=== PATIENT | female | born 1960 | race Caucasian/White ===

== ENCOUNTER 2018-12-26 14:47 | Emergency (ER) | payer BC ==
[2018-12-26] MEDS ORDERED: Albuterol/Ipratropium NEB.SOL* Albuterol 2.5 MG/Ipratropium 0.5 MG 3 ML INH ONE (18:08)
[2018-12-26 18:28] LABS: ABS Basophils 0 10^3/ul (0-0.2); ABS Eosinophils 0.4 10^3/ul (0-0.6); ABS Neutrophils 8.3 10^3/ul (1.5-7.7); ABS Nucleated RBC 0 10^3/ul; Eosinophil % 3.2 %; Hematocrit 44 % (33-41); Hemoglobin 14.7 g/dL (12.0-16.0); Mean Corpuscular HGB Conc 34 g/dL (31-36); Mean Corpuscular Hemoglobin 28 pg (27-31); Mean Corpuscular Volume 83 fL (80-97); Mean Platelet Volume 7.9 fL (7.4-10.4); Nucleated Red Blood Cells % 0; Platelet Count 272 10^3/uL (150-450); Red Blood Count 5.27 10^6 /uL (3.70-4.87); Red Cell Distribution Width 13 % (10.5-15); White Blood Count 11.6 10^3/uL (3.5-10.8)
[2018-12-26 19:01] LABS: ALT 42 U/L (7-52); AST 34 U/L (13-39); Albumin 4.1 g/dL (3.2-5.2); Albumin/Globulin Ratio 1.1 (1-3); Alkaline Phosphatase 80 U/L (34-104); Anion Gap 9 mmol/L (2-11); BUN/Creatinine Ratio 15.6 (8-20); Blood Urea Nitrogen 10 mg/dL (6-24); C Reactive Protein 71.65 mg/L (<8.01); CO2 Carbon Dioxide 27 mmol/L (22-32); Calcium 8.7 mg/dL (8.6-10.3); Chloride 100 mmol/L (101-111); EGFR African American 114.5 (>60); EGFR Non-African American 94.7 (>60); Globulin 3.7 g/dL (2-4); Glucose 95 mg/dL (70-100); Potassium 3.8 mmol/L (3.5-5.0); Sodium 136 mmol/L (135-145); Total Protein 7.8 g/dL (6.4-8.9)
[2018-12-26] MEDS ORDERED: Iodixanol* (CONTRAST) 320 MG/ML 100 ML SDV IV ONE (19:17)
[2018-12-26 19:28] LABS: Troponin I 0.02 ng/mL (<0.04)
--- NOTE | 2018-12-26 19:38 | ED ---
Respiratory - HPI Summary HPI Summary: 58-year-old female presents with cough for the past couple days. She admits to occasional shortness of breath. No chest pain. She states cough is productive. She denies any fevers. No nausea or vomiting. No bowel pain. She was seen in [facility] and told may have spot in lungs. She has history of thyroid and uterine cancer that is in remission. She was never smoker. has fam hx of blood clots. no change in weight. no pain or swelling in her calf muscles. no hx of asthma or copd. - History of Current Complaint Chief Complaint: EDUpperRespComplaint Stated Complaint: HAS SPOT ON LUNG AND WANTS CAT SCAN PER PT Time Seen by Provider: 12/26/18 17:56 Pain Intensity: 0 - Allergy/Home Medications Allergies/Adverse Reactions: Allergies Allergy/AdvReac Type Severity Reaction Status Date / Time Penicillins Allergy Hives Verified 12/26/18 15:06 Sulfa (Sulfonamide Allergy Rash Verified 12/26/18 15:06 Antibiotics) ZUCCHINI Allergy Hives Uncoded 03/28/18 13:47 Home Medications: Home Medications Levothyroxine TAB* [Synthroid TAB*] 125 mcg PO DAILY 12/26/18 [History Confirmed 12/26/18] Metformin HCl 500 mg PO BID 12/26/18 [History Confirmed 12/26/18] Propranolol TAB* [Inderal TAB*] 20 mg PO BID 12/26/18 [History Confirmed ] PMH/Surg Hx/FS Hx/Imm Hx Endocrine/Hematology History: Reports: Hx Diabetes Cardiovascular History: Denies: Hx Hypertension, Hx Pacemaker/ICD History: Denies: Hx Renal Disease Sensory History: Denies: Hx Hearing Aid Psychiatric History: Denies: Hx Panic Disorder - Cancer History Cancer Type, Location and Year: THYROID Hx Chemotherapy: No Hx Radiation Therapy: No - Surgical History Surgery Procedure, Year, and Place: THYROID REMOVED Infectious Disease History: No Infectious Disease History: Denies: Traveled Outside the [place] in Last 30 Days Review of Systems Negative: Fever Negative: Chest Pain Positive: Shortness Of Breath, Cough Negative: Abdominal Pain All Other Systems Reviewed And Are Negative: Yes Physical Exam Triage Information Reviewed: Yes Vital Signs On Initial Exam: Initial Vitals Temp Pulse Resp BP Pulse Ox 97.8 F 67 16 146/64 94 12/26/18 14:59 12/26/18 14:59 12/26/18 14:59 12/26/18 14:59 12/26/18 14:59 Vital Signs Reviewed: Yes Appearance: Positive: Well-Appearing Skin: Positive: Warm, Dry Head/Face: Positive: Normal Head/Face Inspection Eyes: Positive: Normal, EOMI, BASHIR, Conjunctiva Clear ENT: Positive: Normal ENT inspection, Pharynx normal, TMs normal Respiratory/Lung Sounds: Positive: Clear to Auscultation, Breath Sounds Present Cardiovascular: Positive: Normal, RRR Abdomen Description: Positive: Nontender, Soft Bowel Sounds: Positive: Present Musculoskeletal: Positive: Normal Neurological: Positive: Normal Psychiatric: Positive: Normal Diagnostics - Vital Signs Vital Signs Temp Pulse Resp BP Pulse Ox 12/26/18 18:52 66 143/86 93 12/26/18 18:22 71 138/81 97 12/26/18 18:00 66 92 12/26/18 17:53 75 96 12/26/18 17:52 71 162/105 95 12/26/18 16:50 99.3 F 69 16 144/69 93 12/26/18 14:59 97.8 F 67 16 146/64 94 - Laboratory Lab Results: Lab Results 12/26/18 12/26/18 12/26/18 Range/Units 18:19 18:19 18:19 WBC 11.6 H (3.5-10.8) 10^3/uL RBC 5.27 H (3.70-4.87) 10^6 /uL Hgb 14.7 (12.0-16.0) g/dL Hct 44 H (33-41) % MCV 83 (80-97) fL MCH 28 (27-31) pg MCHC 34 (31-36) g/dL RDW 13 (10.5-15) % Plt Count 272 (150-450) 10^3/uL MPV 7.9 (7.4-10.4) fL Neut % (Auto) 71.1 % Lymph % (Auto) 17.0 % Tompkins % (Auto) 8.4 % Eos % (Auto) 3.2 % Baso % (Auto) 0.3 % Absolute Neuts (auto) 8.3 H (1.5-7.7) 10^3/ul Absolute Lymphs (auto) 2.0 (1.0-4.8) 10^3/ul Absolute Monos (auto) 1.0 H (0-0.8) 10^3/ul Absolute Eos (auto) 0.4 (0-0.6) 10^3/ul Absolute Basos (auto) 0 (0-0.2) 10^3/ul Absolute Nucleated RBC 0 10^3/ul Nucleated RBC % 0 D-Dimer, Quantitative 253 H (Less Than 230) ng/mL Sodium 136 (135-145) mmol/L Potassium 3.8 (3.5-5.0) mmol/L Chloride 100 L (101-111) mmol/L Carbon Dioxide 27 (22-32) mmol/L Anion Gap 9 (2-11) mmol/L BUN 10 (6-24) mg/dL Creatinine 0.64 (0.51-0.95) mg/dL Est GFR ( Amer) 114.5 (>60) Est GFR (Non-Af Amer) 94.7 (>60) BUN/Creatinine Ratio 15.6 (8-20) Glucose 95 (70-100) mg/dL Lactic Acid (0.5-2.0) mmol/L Calcium 8.7 (8.6-10.3) mg/dL Total Bilirubin 0.50 (0.2-1.0) mg/dL AST 34 (13-39) U/L ALT 42 (7-52) U/L Alkaline Phosphatase 80 (34-104) U/L Troponin I 0.02 (<0.04) ng/mL C-Reactive Protein 71.65 H (<8.01) mg/L B-Natriuretic Peptide (<=100) pg/mL Total Protein 7.8 (6.4-8.9) g/dL Albumin 4.1 (3.2-5.2) g/dL Globulin 3.7 (2-4) g/dL Albumin/Globulin Ratio 1.1 (1-3) 12/26/18 12/26/18 Range/Units 18:19 18:19 WBC (3.5-10.8) 10^3/uL RBC (3.70-4.87) 10^6 /uL Hgb (12.0-16.0) g/dL Hct (33-41) % MCV (80-97) fL MCH (27-31) pg MCHC (31-36) g/dL RDW (10.5-15) % Plt Count (150-450) 10^3/uL MPV (7.4-10.4) fL Neut % (Auto) % Lymph % (Auto) % Tompkins % (Auto) % Eos % (Auto) % Baso % (Auto) % Absolute Neuts (auto) (1.5-7.7) 10^3/ul Absolute Lymphs (auto) (1.0-4.8) 10^3/ul Absolute Monos (auto) (0-0.8) 10^3/ul Absolute Eos (auto) (0-0.6) 10^3/ul Absolute Basos (auto) (0-0.2) 10^3/ul Absolute Nucleated RBC 10^3/ul Nucleated RBC % D-Dimer, Quantitative (Less Than 230) ng/mL Sodium (135-145) mmol/L Potassium (3.5-5.0) mmol/L Chloride (101-111) mmol/L Carbon Dioxide (22-32) mmol/L Anion Gap (2-11) mmol/L BUN (6-24) mg/dL Creatinine (0.51-0.95) mg/dL Est GFR ( Amer) (>60) Est GFR (Non-Af Amer) (>60) BUN/Creatinine Ratio (8-20) Glucose (70-100) mg/dL Lactic Acid 1.0 (0.5-2.0) mmol/L Calcium (8.6-10.3) mg/dL Total Bilirubin (0.2-1.0) mg/dL AST (13-39) U/L ALT (7-52) U/L Alkaline Phosphatase (34-104) U/L Troponin I (<0.04) ng/mL C-Reactive Protein (<8.01) mg/L B-Natriuretic Peptide 27 (<=100) pg/mL Total Protein (6.4-8.9) g/dL Albumin (3.2-5.2) g/dL Globulin (2-4) g/dL Albumin/Globulin Ratio (1-3) Result Diagrams: 12/26/18 18:19 12/26/18 18:19 Lab Statement: Any lab studies that have been ordered have been reviewed, and results considered in the medical decision making process. - CT cta CT Interpretation Completed By: Radiologist Summary of CT Findings: IMPRESSION: 1. No pulmonary emboli. 2. Findings of bronchitis. - EKG No standard instances Cardiac Rate: NL EKG Rhythm: Sinus Rhythm Summary of EKG Findings: sinus rhythm Re-Evaluation - Re-Evaluation First Eval Re-Evaluation Time: 19:44 Change: Unchanged Disposition - Course Course Of Treatment: 58-year-old female presents with cough for the past couple days. She admits to occasional shortness of breath. No chest pain. She states cough is productive. She denies any fevers. No nausea or vomiting. No bowel pain. She was seen in [facility] and told may have spot in lungs. She has history of thyroid and uterine cancer that is in remission. She was never smoker. has fam hx of blood clots. no change in weight. no pain or swelling in her calf muscles. no hx of asthma or copd. on exam lungs CTA. ekg sinus rhythm. troponin .02. d-dimer elevated. bnp normal. crp and wbc elevated. cta shows bronchitis. will treat with inhaler and steriod. told follow up with primary. patient understand and agrees with plan. - Differential Dx - Cardiopulmonary Differential Diagnoses - Cardiopulmonary: Bronchitis, Lower Resp Infection, Pulmonary Embolism - Diagnoses Provider Diagnoses: Bronchitis Discharge - Sign-Out/Discharge Documenting (check all that apply): Patient Departure Patient Received Moderate/Deep Sedation with Procedure: No - Discharge Plan Condition: Good Disposition: HOME Prescriptions: Benzonatate CAP* [Tessalon 100 MG CAP*] 100 mg PO TID #21 cap predniSONE TAB* [Deltasone TAB*] 50 mg PO DAILY #4 tab Patient Education Materials: Acute Bronchitis (ED) Referrals: Renetta Marshall MD [Primary Care Provider] - Additional Instructions: Use Tessalon three times a day for cough Use inhaler one puff every 4 hours for cough as needed Take steroid once a day for 5 days Cough can last up to 4 weeks Follow up with primary care physician Return to ED if develop chest pain or shortness of breath or any new or worsening symptoms - Billing Disposition and Condition Condition: GOOD Disposition: Home
[2018-12-26] MEDS ORDERED: methylPREDNISolone 125 MG* 2 ML VIAL IV ONE (20:12)
[2018-12-26] MEDS ORDERED: Albuterol HFA INHALER* 8 gm MDI INH ONE (20:27)
[2018-12-26] MEDS ORDERED: Benzonatate CAP* 100 MG PO ONE (20:28)
[2018-12-26 20:59] VITALS: BP 160/92
== END 2018-12-26 21:11 | disposition home or self-care (01) ==
LOC: ED 14:47
DX: J40 Bronchitis, not specified as acute or chronic (principal); R05 Cough; E11.9 Type 2 diabetes mellitus without complications; Z88.0 Allergy status to penicillin; Z88.2 Allergy status to sulfonamides; R06.02 Shortness of breath
CPT/HCPCS: 36415; 71275; 80053; 83605; 83880; 84484; 85025; 85379; 86140; 93005; 96374; 99283; A9270-GY; J2930; Q9967